=== PATIENT | female | born 2000 | race Hispanic/Latino ===

== ENCOUNTER 2020-08-05 15:31 | Emergency (ER) | payer SELFPAY ==
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
[2020-08-05 15:47] VITALS: BP 119/65; PULSE 72; RESP 16; TEMP 36.6; O2SAT 100
--- NOTE | 2020-08-05 16:31 | PC.NURSE ---
Patient in imaging at this time.
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
[2020-08-05] MEDS: IBUPROFEN 600 MG TABLET PO (16:38)
== END 2020-08-05 17:10 | disposition home or self-care (01) ==
PROVIDERS: Emergency Provider Emergency Medicine
DX: S16.1XXA Strain of muscle, fascia and tendon at neck level, initial encounter (principal); M54.9 Dorsalgia, unspecified; V43.62XA Car passenger injured in collision with other type car in traffic accident, initial encounter
CPT/HCPCS: 71101; 72125; 99284; A9270

== ENCOUNTER 2021-02-17 04:50 | Emergency (ER) | payer SELFPAY ==
--- NOTE | ~2021-02-17 | NM_ITS ---
EXAMINATION: NM pulmonary perfusion DATE: 02/17/2021 11:31 INDICATION: Chest pain. TECHNIQUE: 5.1 mCi Tc-99m MAA was administered intravenously for perfusion images. Scintigraphic heather ges of the chest were obtained. COMPARISON: Chest single view 02/17/2021 FINDINGS: Perfusion images show no defects. IMPRESSION: 1. Normal perfusion. Pulmonary embolism absent. Reviewed, dictated and finalized at location A.
--- NOTE | ~2021-02-17 | XR_ITS ---
XR chest 1V portable DATE: 02/17/2021 07:37 INDICATION: Cough. Loss of taste and smell. TECHNIQUE: Portable upright AP chest on 02/17/2021 at 0730 hours COMPARISON: 08/01/2020 PA chest and right rib FINDINGS: Normal heart size. No hilar or mediastinal enlargement. No pulmonary infiltrate or consolid ation, pleural effusion or pulmonary vascular congestion or pneumothorax. Included skeletal structure s appear normal. IMPRESSION: No active cardiopulmonary disease Reviewed, dictated and finalized at location A.
[2021-02-17 04:55] VITALS: BP 109/76; PULSE 109; RESP 20; TEMP 37.9; O2SAT 100
[2021-02-17 06:34] VITALS: BP 107/64; PULSE 105; RESP 32; TEMP 37.7; O2SAT 100
[2021-02-17 06:36] VITALS: O2SAT 100
--- NOTE | 2021-02-17 07:13 | ECG_ITS ---
Measurements Intervals [place] Rate: 108 P: 14 MT: 112 QRS: 61 QRSD: 98 T: -1 QT: 332 QTc: 447 Interpretive Statements SINUS TACHYCARDIA WITH SHORT MT INTERVAL NONSPECIFIC T-WAVE ABNORMALITY- ANT/INF LEADS ABNORMAL ECG Electronically Signed On 02-17-2021 8:19:50 CDT by Eric Farris D.O.
--- NOTE | 2021-02-17 07:28 | ED.URI ---
HPI - URI/Sore Throat General Chief Complaint: Upper Respiratory Infection Stated Complaint: Covid-19 symptoms, 3 weeks Time Seen by Provider: 02/17/21 07:01 Source: patient and RN notes reviewed Mode of arrival: ambulatory Limitations: no limitations History of Present Illness HPI Narrative: This is a 20 year old female who presents for evaluation of possible covid infection. Patient was exposed to covid 2 weeks ago and she developed symptoms concerning for covid 2 days ago. She reports loss of taste and smell along with runny nose and congestion. She also reports nonproductive cough with midsternal chest pain. She has chest pain when she tries to take deep breath. She denies associated shortness of breath, nausea, vomiting, diarrhea or abdominal pain. She reports she had positive urine test 2 days ago and her last menstrual cycle was 01/13/21. She denies vaginal bleeding. Related Data Allergies Allergy/AdvReac Type Severity Reaction Status Date / Time No Known Allergies Allergy Verified 02/17/21 06:37 Review of Systems Review of Systems: All systems reviewed & are unremarkable except as noted in HPI and below PMFSH Past Medical History Medical History (Updated 02/17/21 @ 11:55 by Nasreen Pugh MD) Patient denies significant medical history Surgical History Surgical History (Updated 02/17/21 @ 07:32 by Nasreen Pugh MD) No pertinent past surgical history Social History Social History (Updated 08/05/20 @ 16:37 by King Simmons DO) Smoking status: Never smoker Exam Const: General: no acute distress and alert Orientation/consciousness: patient oriented x3 HENMT: Head: normocephalic and atraumatic Face and sinus: face symmetric Mouth: Yes Normal oral and palatal mucosa present, Yes lip normal, Yes oropharynx normal and Yes moist mucous membranes Eyes: Pupils: Equal, round and reactive pupils present EOM: EOMs intact bilaterally Resp: Effort & Inspection: normal respiratory effort and no retractions Auscultation: clear to auscultation bilaterally Cardio: Rate: regular rate Rhythm: regular rhythm Heart sounds: no murmurs GI: GI Palp: Yes Soft to palpation, No Tenderness to palpation present (GI) and No Guarding due to palpation present (GI) Auscultation: normal bowel sounds Back/Spine/Pelvis: Back: no CVA tenderness Skin: General skin exam: normal color Rashes: no rashes Neuro: General: patient oriented x3, moves all extremities and CN's II-XI intact bilaterally Extrem: General: normal to inspection and no pedal edema Psych: Mental Status: mental status grossly normal Affect: normal affect Course Reevaluation(s) Reevaluation #1: I discussed with patient that she has no pneumonia or PE at this time. She is underinvestigation for COVID so she will need to quarantine until results. I discussed she is allowed to tylenol , benadryl for her symptoms. She will be prescribed albuterol inhaler. Date: 02/17/21 Time: 11:50 Vital Signs Vital signs: Vital Signs Temperature 100.3 F H 02/17/21 04:55 Pulse Rate 109 H 02/17/21 04:55 Respiratory Rate 20 02/17/21 04:55 Blood Pressure 109/76 02/17/21 04:55 Pulse Oximetry 100 02/17/21 04:55 Temperature 99.8 F H 02/17/21 06:34 Pulse Rate 84 02/17/21 12:34 Respiratory Rate 16 02/17/21 12:34 Blood Pressure 100/78 02/17/21 12:34 Pulse Oximetry 100 02/17/21 12:34 MDM - URI/Sore Throat Lab Data Attestation: I reviewed the patient's lab results. Result diagrams: 02/17/21 08:02 02/17/21 08:02 Labs: Lab Results 02/17/21 02/17/21 02/17/21 Range/Units 07:26 07:26 08:02 WBC (4.5-10.0) K/mm3 RBC (4.2-5.4) M/mm3 Hgb (12.0-15.0) g/dL Hct (37.0-47.0) % MCV (80-100) fl MCH (26-34) pg MCHC (32-36) g/dl RDW (11.5-14.5) % Plt Count (150-375) k/mm3 MPV (7.4-10.4) fl Immature Gran % (Auto) (0-0.5) %
[2021-02-17 07:49] LABS: Add Urine Microscopic? YES; Appearance Urine Clear (Clear); Bacteria Urine Trace /hpf; Bilirubin Urine Negative (Negative); Blood Urine Negative (Negative); Color Urine Yellow (Yellow); Glucose Urine UA Negative (Negative); Ketones Urine 1+ mg/dL (Negative); Leukocyte Esterase Ur Negative LEU/UL (Negative); Mucus Urine Few /lpf; Nitrate Urine Negative (Negative); Protein Urine 1+ mg/dL (Negative); Specific Grav Ur 1.027 (1.001-1.035); Squamous Epithelial Cell Urine Many /hpf (Few); WBC Urine 0-3 /hpf
[2021-02-17] MEDS: ACETAMINOPHEN 500 MG TABLET 1000 MG PO (07:49)
--- NOTE | 2021-02-17 07:52 | PC.NURSE ---
strep swab sent to lab for culture
[2021-02-17 08:14] LABS: Basophils Percent Auto 0.3 % (0.2-1.2); Hematocrit 34.6 % (37.0-47.0); Immature Granulocyte Absolute 0.01 K/mm3 (0.00-0.031); Immature Granulocyte Percent A 0.3 % (0-0.5); Lymphocytes Absolute Auto 0.84 K/mm3 (0.9-3.2); Lymphocytes Percent Auto 23.9 % (18.3-44.2); Mean Corpuscular HGB Conc 34.7 g/dl (32-36); Mean Corpuscular Hemoglobin 29.7 pg (26-34); Mean Corpuscular Volume 85.6 fl (80-100); Mean Platelet Volume 10.1 fl (7.4-10.4); Monocytes Absolute Auto 0.3 K/mm3 (0.1-0.6); Neutrophils Absolute Auto 2.4 K/mm3 (1.3-6.7); Neutrophils Percent Auto 67.5 % (45.5-73.1); Platelet Count Result 172 k/mm3 (150-375); Red Blood Count 4.04 M/mm3 (4.2-5.4); Red Cell Distribution Width 12.4 % (11.5-14.5); White Blood Count 3.5 K/mm3 (4.5-10.0)
[2021-02-17 08:26] LABS: Alanine Aminotransferase 14 U/L (4-35); Albumin Level 4.5 g/dL (3.5-5.1); Alkaline Phosphatase 67 U/L (38-126); Anion Gap 10 mmol/L (8-16); Aspartate Amino Transferase 24 U/L (14-36); Bilirubin,Total 0.4 mg/dL (0.2-1.3); Blood Urea Nitrogen 7 mg/dL (7-17); CRP 1.5 mg/dL (<1.0); Calcium 8.4 mg/dL (8.4-10.2); Carbon Dioxide 23 mmol/L (22-30); Chloride 104 mmol/L (98-107); Estimated CRCL calculation 138 ml/min; Estimated Glomerular Filt Rate > 60; Glucose 104 mg/dL (65-110); Potassium 3.7 mmol/L (3.4-5.0); Sodium 137 mmol/L (137-145)
[2021-02-17 08:31] LABS: INR 1.1
[2021-02-17 08:32] LABS: Partial Thromboplastin Time 35.7 SECONDS (22.3-36.8)
[2021-02-17 08:35] LABS: D Dimer 0.54 ug/mL (<0.48); Troponin I < 0.012 ng/mL (0.000-0.034)
[2021-02-17 08:43] LABS: Beta HCG Quantitative 171.69 mIU/ML
[2021-02-17 10:19] VITALS: BP 121/82; PULSE 90; RESP 16; O2SAT 99
[2021-02-17 12:34] VITALS: BP 100/78; PULSE 84; RESP 16; O2SAT 100
[2021-02-17 18:04] LABS: SARS-CoV-2 RNA PCR Positive
== END 2021-02-17 12:34 | disposition home or self-care (01) ==
PROVIDERS: Emergency Provider General Practice
DX: O98.511 Other viral diseases complicating pregnancy, first trimester (principal); U07.1 COVID-19; O99.511 Diseases of the respiratory system complicating pregnancy, first trimester; J98.8 Other specified respiratory disorders; Z3A.00 Weeks of gestation of pregnancy not specified
CPT/HCPCS: 36415; 71045; 78580; 80053; 81001; 81025; 84484; 84702; 85025; 85380; 85461; 85610; 85730; 86140; 87081; 87804; 87880; 93005; 99284; A9270; A9540; C9803; U0003; U0005